=== PATIENT | male | born 1970 | race Caucasian/White ===

== ENCOUNTER 2021-08-01 09:18 | Outpatient (CLI) | payer OTHER, SELFPAY ==
[2021-08-01 13:44] LABS: Basophils Absolute Auto 0.1 K/mm3 (0.0-0.1); Basophils Percent Auto 0.6 % (0.2-1.2); Eosinophils Absolute Auto 0.1 K/mm3 (0-0.3); Eosinophils Percent Auto 1.6 % (0-4.4); Hemoglobin 15.7 g/dL (14.0-18.0); Immature Granulocyte Absolute 0.03 K/mm3 (0.00-0.031); Immature Granulocyte Percent A 0.3 % (0-0.5); Lymphocytes Absolute Auto 2.49 K/mm3 (0.9-3.2); Lymphocytes Percent Auto 28.8 % (18.3-44.2); Mean Corpuscular HGB Conc 33.4 g/dl (32-36); Mean Corpuscular Hemoglobin 29.3 pg (26-34); Mean Corpuscular Volume 87.7 fl (80-100); Mean Platelet Volume 11.4 fl (7.4-10.4); Monocytes Absolute Auto 0.6 K/mm3 (0.1-0.6); Monocytes Percent Auto 7.2 % (2.6-8.5); Neutrophils Absolute Auto 5.3 K/mm3 (1.3-6.7); Neutrophils Percent Auto 61.5 % (45.5-73.1); Platelet Count Result 203 k/mm3 (150-375); Red Blood Count 5.36 M/mm3 (4.6-6.20); Red Cell Distribution Width 13.1 % (11.5-14.5); White Blood Count 8.7 K/mm3 (4.5-10.0)
[2021-08-01 13:47] LABS: Add Urine Microscopic? YES; Appearance Urine Clear (Clear); Bilirubin Urine Negative (Negative); Blood Urine Negative (Negative); Color Urine Yellow (Yellow); Glucose Urine UA Negative (Negative); Ketones Urine Negative (Negative); Leukocyte Esterase Ur Negative LEU/UL (NEGATIVE); Mucus Urine Rare /lpf; Nitrate Urine Negative (Negative); Protein Urine 1+ mg/dL (Negative); RBC Urine 0-2 /hpf (0-2); Specific Grav Ur 1.025 (1.001-1.035); Squamous Epithelial Cell Urine Rare /hpf (Few); Urobilinogen Urine Negative mg/dL (<2.0); WBC Urine 0-3 /hpf (0-3)
[2021-08-01 17:04] LABS: Vitamin D 25 Hydroxy 13.1 ng/mL
[2021-08-01 21:41] LABS: Alanine Aminotransferase 38 U/L (4-50); Albumin Level 4.4 g/dL (3.5-5.1); Alkaline Phosphatase 88 U/L (38-126); Anion Gap 12 mmol/L (8-16); Aspartate Amino Transferase 33 U/L (17-59); Bilirubin,Total 0.5 mg/dL (0.2-1.3); Blood Urea Nitrogen 12 mg/dL (9-20); Calcium 9.3 mg/dL (8.4-10.2); Carbon Dioxide 20 mmol/L (22-30); Chloride 106 mmol/L (98-107); Cholesterol 197 mg/dL (0-200); Estimated Glomerular Filt Rate > 60; Glucose 100 mg/dL (65-110); HDL Direct 32 mg/dL; Potassium 3.9 mmol/L (3.4-5.0); Sodium 138 mmol/L (137-145); Triglycerides 130 mg/dL (<150)
[2021-08-01 21:51] LABS: LDL Cholesterol Direct 126 mg/dL
[2021-08-01 22:12] LABS: Prostate Specific Antigen 0.7 ng/mL (< OR = 4.0)
[2021-08-01 22:35] LABS: Uric Acid 8.2 mg/dL (3.5-8.5)
== END 2021-08-01 09:19 | disposition home or self-care (01) ==
LOC: ANHWCLAB 09:26
PROVIDERS: PCP Internal Medicine; Referring Provider Internal Medicine; Visit Provider Internal Medicine
DX: G62.9 Polyneuropathy, unspecified (principal); E79.0 Hyperuricemia without signs of inflammatory arthritis and tophaceous disease; E66.01 Morbid (severe) obesity due to excess calories; I10 Essential (primary) hypertension; F32.A Depression, unspecified; E55.9 Vitamin D deficiency, unspecified; Z12.5 Encounter for screening for malignant neoplasm of prostate
CPT/HCPCS: 36415; 80053; 80061; 81001; 82306; 84153; 84443; 84550; 85025; G0103

== ENCOUNTER 2021-10-23 12:02 | Outpatient (CLI) | payer OTHER, SELFPAY ==
[2021-10-23 12:45] LABS: Basophils Percent Auto 0.5 % (0.2-1.2); Eosinophils Absolute Auto 0.1 K/mm3 (0-0.3); Eosinophils Percent Auto 1.6 % (0-4.4); Hematocrit 47.9 % (42.0-52.0); Hemoglobin 16.1 g/dL (14.0-18.0); Immature Granulocyte Absolute 0.02 K/mm3 (0.00-0.031); Immature Granulocyte Percent A 0.2 % (0-0.5); Lymphocytes Absolute Auto 1.95 K/mm3 (0.9-3.2); Lymphocytes Percent Auto 24.2 % (18.3-44.2); Mean Corpuscular HGB Conc 33.6 g/dl (32-36); Mean Corpuscular Hemoglobin 29.7 pg (26-34); Mean Corpuscular Volume 88.2 fl (80-100); Mean Platelet Volume 10.3 fl (7.4-10.4); Monocytes Absolute Auto 0.5 K/mm3 (0.1-0.6); Monocytes Percent Auto 5.6 % (2.6-8.5); Neutrophils Absolute Auto 5.5 K/mm3 (1.3-6.7); Neutrophils Percent Auto 67.9 % (45.5-73.1); Platelet Count Result 194 k/mm3 (150-375); Red Blood Count 5.43 M/mm3 (4.6-6.20); Red Cell Distribution Width 12.9 % (11.5-14.5); White Blood Count 8.1 K/mm3 (4.5-10.0)
[2021-10-23 12:56] LABS: Alanine Aminotransferase 32 U/L (4-50); Albumin Level 4.3 g/dL (3.5-5.1); Alkaline Phosphatase 95 U/L (38-126); Anion Gap 6 mmol/L (8-16); Aspartate Amino Transferase 27 U/L (17-59); Bilirubin,Total 0.6 mg/dL (0.2-1.3); Blood Urea Nitrogen 10 mg/dL (9-20); Calcium 8.7 mg/dL (8.4-10.2); Carbon Dioxide 24 mmol/L (22-30); Chloride 110 mmol/L (98-107); Cholesterol 135 mg/dL (0-200); Estimated Glomerular Filt Rate > 60; Glucose 119 mg/dL (65-110); HDL Direct 35 mg/dL; Potassium 4.1 mmol/L (3.4-5.0); Sodium 140 mmol/L (137-145); Triglycerides 101 mg/dL (<150)
[2021-10-23 13:07] LABS: Hemoglobin A1C 5.6 % (<5.7); LDL Cholesterol Direct 75 mg/dL
[2021-10-23 13:57] LABS: Vitamin D 25 Hydroxy < 12.8 ng/mL
[2021-10-27 03:01] LABS: Insulin Level Total 19.7 uIU/mL (<=19.6)
== END 2021-10-23 12:03 | disposition home or self-care (01) ==
LOC: ANHLAB 12:06
PROVIDERS: PCP Internal Medicine
DX: F33.0 Major depressive disorder, recurrent, mild (principal)
CPT/HCPCS: 36415; 80053; 80061; 82306; 82607; 82746; 83036; 83525; 84443; 85025

== ENCOUNTER 2022-01-16 16:04 | Outpatient (CLI) | payer OTHER, SELFPAY ==
[2022-01-16 16:45] LABS: Alanine Aminotransferase 36 U/L (6-50); Albumin Level 4.4 g/dL (3.5-5.1); Alkaline Phosphatase 98 U/L (38-126); Anion Gap 7 mmol/L (8-16); Aspartate Amino Transferase 31 U/L (17-59); Bilirubin,Total 0.6 mg/dL (0.2-1.3); Blood Urea Nitrogen 11 mg/dL (9-20); Calcium 8.9 mg/dL (8.4-10.2); Carbon Dioxide 24 mmol/L (22-30); Chloride 108 mmol/L (98-107); Cholesterol 124 mg/dL (0-200); Estimated Glomerular Filt Rate > 60; Glucose 128 mg/dL (65-110); HDL Direct 37 mg/dL; Sodium 139 mmol/L (137-145); Triglycerides 106 mg/dL (<150); Uric Acid 5.9 mg/dL (3.5-8.5)
[2022-01-16 16:55] LABS: LDL Cholesterol Direct 56 mg/dL
== END 2022-01-16 16:05 | disposition home or self-care (01) ==
LOC: ANHLAB 16:07
PROVIDERS: PCP Internal Medicine; Visit Provider Internal Medicine
DX: E79.0 Hyperuricemia without signs of inflammatory arthritis and tophaceous disease (principal); I10 Essential (primary) hypertension
CPT/HCPCS: 36415; 80053; 80061; 84550

== ENCOUNTER 2022-04-23 10:20 | Emergency (ER) | payer OTHER, SELFPAY ==
[2022-04-23 10:28] VITALS: BP 158/98; PULSE 111; RESP 18; TEMP 36.8; O2SAT 97
--- NOTE | 2022-04-23 10:45 | ED.SKABFB ---
HPI - Skin/Abscess/Foreign Bdy General Chief complaint: Skin/Abscess/Foreign Body Stated complaint: Insect Bite on Left Hand Time Seen by Provider: 04/23/22 10:45 Source: patient and RN notes reviewed Mode of arrival: ambulatory Limitations: no limitations History of Present Illness HPI narrative: 51-year-old male presents to the [facility] with redness after being bit by a spider on Friday night or Friday morning. Redness to the dorsal aspect left hand between MCP, 4/5 Has full range of motion of all 5 fingers. Capillary refill under 2 seconds with sensation intact. Redness, minor swelling and increased warmth Related Data Home Medications Medication Instructions Recorded Confirmed latanoprost 0.005 % eye drops 1 drp ophthalmic (eye) DIRECTED 04/23/22 04/23/22 Allergies Allergy/AdvReac Type Severity Reaction Status Date / Time No Known Allergies Allergy Mild Verified 04/23/22 10:25 Review of Systems Review of Systems: All systems reviewed & are unremarkable except as noted in HPI and below Constitutional: Constitutional: Reports no additional constitutional complaints, Denies chills and Denies fever(s) Eyes: Eyes: Reports no additional eye complaints ENT: Reports system reviewed and no additional complaints, except as documented Cardiovascular: Cardiovascular: Reports no additional cardiovascular complaints Respiratory: Respiratory: Reports no additional respiratory complaints Gastrointestinal: Gastrointestinal: Reports no additional gastrointestinal complaints Musculoskeletal: Musculoskeletal: Reports no additional musculoskeletal complaints Integumentary/Breasts: Skin/Breast: Reports as per HPI Neurologic: Reports system reviewed and no additional complaints, except as documented Psychiatric: Psychiatric: Reports no additional psychiatric complaints Allergic/Immunologic: Allergic/Immunologic: Reports no additional allergic/immunologic complaints PMFSH Family History Family History Mother Hypertension Depression Grandparent Alcohol abuse Diabetes mellitus Hypertension Cerebrovascular accident Social History Social History Smoking status: Never smoker Drinks per week: 1 Alcohol use details: soically Substance use: never Comments At the time of my signature, I reviewed and agree with the nursing past medical, surgical, social, and family history. There is no relevant family history pertinent to the patient complaint. Exam Const: General: healthy appearing, no acute distress and alert Nutritional Appearance: well nourished Orientation/consciousness: patient oriented x3 Limitations: no limitations HENMT: Head: normal to inspection Ears: external ears normal General nose exam: Normal external nose present Eyes: General: appearance normal, both eyes and all related structures Pupils: Equal, round and reactive pupils present Neck: Neck: normal visual inspection, no lymphadenopathy and no meningeal signs Chest: Chest palpation & inspection: normal inspection of the chest Resp: Effort & Inspection: normal respiratory effort and no use of accessory muscles Auscultation: clear to auscultation bilaterally, no crackles, no rales, no rhonchi and no wheezes Cardio: Rate: regular rate Rhythm: regular rhythm Back/Spine/Pelvis: Cervical Spine: normal cervical lordosis Thoracic/Lumbar Spine: thoracic and lumbar spine normal to inspection Skin: General skin exam: normal color Rashes: no rashes Wounds: no wounds Other: Dorsal hand above metacarpals 4 and 5, red, swollen, hot to touch no fluctuance. Measuring 2 x 2 cm Neuro: General: patient oriented x3, moves all extremities, no meningeal signs and no focal motor deficits Cranial nerves: Yes Equal, round and reactive pupils present Speech: normal speech Gait exam (Neuro): Normal gait present Extrem: General: n
== END 2022-04-23 10:55 | disposition home or self-care (01) ==
PROVIDERS: Emergency Provider Nurse Practitioner; PCP Nurse Practitioner
DX: S60.562A Insect bite (nonvenomous) of left hand, initial encounter (principal); L03.114 Cellulitis of left upper limb; W57.XXXA Bitten or stung by nonvenomous insect and other nonvenomous arthropods, initial encounter; E78.00 Pure hypercholesterolemia, unspecified; I10 Essential (primary) hypertension; G47.30 Sleep apnea, unspecified; M10.9 Gout, unspecified; F32.A Depression, unspecified; G62.9 Polyneuropathy, unspecified
CPT/HCPCS: 99213; G0463

== ENCOUNTER 2022-05-20 13:59 | Outpatient (CLI) | payer OTHER, SELFPAY ==
[2022-05-20 14:38] LABS: Basophils Percent Auto 0.5 % (0.2-1.2); Eosinophils Absolute Auto 0.2 K/mm3 (0-0.3); Eosinophils Percent Auto 2.7 % (0-4.4); Hematocrit 47.1 % (42.0-52.0); Hemoglobin 15.1 g/dL (14.0-18.0); Immature Granulocyte Absolute 0.01 K/mm3 (0.00-0.031); Immature Granulocyte Percent A 0.2 % (0-0.5); Lymphocytes Absolute Auto 1.99 K/mm3 (0.9-3.2); Lymphocytes Percent Auto 31.5 % (18.3-44.2); Mean Corpuscular HGB Conc 32.1 g/dl (32-36); Mean Corpuscular Hemoglobin 28.2 pg (26-34); Monocytes Absolute Auto 0.4 K/mm3 (0.1-0.6); Monocytes Percent Auto 6.2 % (2.6-8.5); Neutrophils Absolute Auto 3.7 K/mm3 (1.3-6.7); Neutrophils Percent Auto 58.9 % (45.5-73.1); Platelet Count Result 198 k/mm3 (150-375); Red Blood Count 5.35 M/mm3 (4.6-6.20); Red Cell Distribution Width 13.1 % (11.5-14.5); White Blood Count 6.3 K/mm3 (4.5-10.0)
[2022-05-20 15:59] LABS: Alanine Aminotransferase 43 U/L (6-50); Albumin Level 4.2 g/dL (3.5-5.1); Alkaline Phosphatase 88 U/L (38-126); Anion Gap 8 mmol/L (8-16); Aspartate Amino Transferase 32 U/L (17-59); Bilirubin,Total 0.5 mg/dL (0.2-1.3); Blood Urea Nitrogen 15 mg/dL (9-20); Carbon Dioxide 24 mmol/L (22-30); Chloride 109 mmol/L (98-107); Estimated Glomerular Filt Rate > 60; Glucose 128 mg/dL (65-110); Potassium 4.1 mmol/L (3.4-5.0); Sodium 141 mmol/L (137-145)
[2022-05-20 17:09] LABS: Folic Acid 5.1 ng/mL (2.76->20)
[2022-05-22 12:47] LABS: Insulin Level Total 23.6 uIU/mL (<=19.6)
== END 2022-05-20 14:00 | disposition home or self-care (01) ==
LOC: ANHLAB 14:10
PROVIDERS: PCP Nurse Practitioner; Visit Provider Psychiatry & Neurology Psychiatry
DX: F33.0 Major depressive disorder, recurrent, mild (principal)
CPT/HCPCS: 36415; 80053; 82607; 82746; 83525; 84443; 85025

== ENCOUNTER 2022-08-01 13:18 | Outpatient (CLI) | payer OTHER, SELFPAY ==
[2022-08-01 13:47] LABS: Uric Acid 5.8 mg/dL (3.5-8.5)
[2022-08-01 15:18] LABS: Vitamin D 25 Hydroxy 36.5 ng/mL
== END 2022-08-01 13:19 | disposition home or self-care (01) ==
PROVIDERS: PCP Internal Medicine; Visit Provider Internal Medicine
DX: G62.9 Polyneuropathy, unspecified (principal); E55.9 Vitamin D deficiency, unspecified; M10.9 Gout, unspecified
CPT/HCPCS: 36415; 82306; 82607; 84550

== ENCOUNTER 2022-09-11 14:45 | Outpatient (CLI) | payer OTHER, SELFPAY ==
[2022-09-11 15:49] LABS: Alanine Aminotransferase 36 U/L (6-50); Albumin Level 4.4 g/dL (3.5-5.1); Alkaline Phosphatase 85 U/L (38-126); Anion Gap 7 mmol/L (8-16); Aspartate Amino Transferase 29 U/L (17-59); Bilirubin,Total 0.4 mg/dL (0.2-1.3); Blood Urea Nitrogen 12 mg/dL (9-20); Carbon Dioxide 25 mmol/L (22-30); Chloride 110 mmol/L (98-107); Estimated Glomerular Filt Rate > 60; Glucose 121 mg/dL (65-110); Sodium 142 mmol/L (137-145)
== END 2022-09-11 14:46 | disposition home or self-care (01) ==
PROVIDERS: PCP Nurse Practitioner; Visit Provider Psychiatry & Neurology Psychiatry
DX: R73.01 Impaired fasting glucose (principal)
CPT/HCPCS: 36415; 80053; 83036

== ENCOUNTER 2022-12-10 12:07 | Outpatient (CLI) | payer OTHER, SELFPAY ==
[2022-12-10 13:09] LABS: Alanine Aminotransferase 45 U/L (6-50); Albumin Level 4.6 g/dL (3.5-5.1); Alkaline Phosphatase 98 U/L (38-126); Anion Gap 8 mmol/L (8-16); Aspartate Amino Transferase 32 U/L (17-59); Bilirubin,Total 0.8 mg/dL (0.2-1.3); Blood Urea Nitrogen 14 mg/dL (9-20); Calcium 9.1 mg/dL (8.4-10.2); Carbon Dioxide 27 mmol/L (22-30); Chloride 106 mmol/L (98-107); Cholesterol 131 mg/dL (0-200); Estimated Glomerular Filt Rate > 60; Glucose 118 mg/dL (65-110); HDL Direct 35 mg/dL; Sodium 141 mmol/L (137-145); Triglycerides 174 mg/dL (<150)
[2022-12-10 13:15] LABS: Hemoglobin A1C 5.9 % (<5.7)
[2022-12-10 13:20] LABS: LDL Cholesterol Direct 66 mg/dL
[2022-12-10 13:41] LABS: Creatinine Urine 252.1 mg/dL
[2022-12-10 13:43] LABS: MALB Creatinine Ratio 3.1 mg/g (0-30); Microalbumin Urine Random 7.9 mg/L (0-16.7)
== END 2022-12-10 12:08 | disposition home or self-care (01) ==
LOC: ANHLAB 12:10
PROVIDERS: PCP Internal Medicine; Visit Provider Nurse Practitioner Family
DX: R73.01 Impaired fasting glucose (principal); R73.09 Other abnormal glucose; E78.5 Hyperlipidemia, unspecified; I10 Essential (primary) hypertension
CPT/HCPCS: 36415; 80053; 80061; 82043; 83036

== ENCOUNTER 2023-07-11 13:24 | Outpatient (CLI) | payer OTHER, SELFPAY ==
[2023-07-11 14:54] LABS: Basophils Absolute Auto 0.1 K/mm3 (0.0-0.1); Basophils Percent Auto 0.6 % (0.2-1.2); Eosinophils Absolute Auto 0.1 K/mm3 (0-0.3); Eosinophils Percent Auto 1.8 % (0-4.4); Hematocrit 46.8 % (42.0-52.0); Hemoglobin 15.4 g/dL (14.0-18.0); Immature Granulocyte Absolute 0.01 K/mm3 (0.00-0.031); Immature Granulocyte Percent A 0.1 % (0-0.5); Lymphocytes Absolute Auto 2.38 K/mm3 (0.9-3.2); Lymphocytes Percent Auto 30.2 % (18.3-44.2); Mean Corpuscular HGB Conc 32.9 g/dl (32-36); Mean Corpuscular Hemoglobin 28.8 pg (26-34); Mean Corpuscular Volume 87.6 fl (80-100); Mean Platelet Volume 10.9 fl (7.4-10.4); Monocytes Absolute Auto 0.7 K/mm3 (0.1-0.6); Monocytes Percent Auto 8.2 % (2.6-8.5); Neutrophils Absolute Auto 4.7 K/mm3 (1.3-6.7); Neutrophils Percent Auto 59.1 % (45.5-73.1); Platelet Count Result 209 k/mm3 (150-375); Red Blood Count 5.34 M/mm3 (4.6-6.20); Red Cell Distribution Width 13.2 % (11.5-14.5); White Blood Count 7.9 K/mm3 (4.5-10.0)
[2023-07-11 15:03] LABS: Alanine Aminotransferase 39 U/L (6-50); Albumin Level 4.5 g/dL (3.5-5.1); Alkaline Phosphatase 85 U/L (38-126); Anion Gap 13 mmol/L (8-16); Aspartate Amino Transferase 30 U/L (17-59); Bilirubin,Total 0.7 mg/dL (0.2-1.3); Blood Urea Nitrogen 14 mg/dL (9-20); Calcium 9.2 mg/dL (8.4-10.2); Carbon Dioxide 25 mmol/L (22-30); Chloride 106 mmol/L (98-107); Estimated Glomerular Filt Rate > 60; Glucose 88 mg/dL (65-110); Potassium 3.9 mmol/L (3.4-5.0); Sodium 144 mmol/L (137-145)
[2023-07-11 15:06] LABS: Hemoglobin A1C 5.8 % (<5.7)
[2023-07-11 15:34] LABS: Prostate Specific Antigen 0.7 ng/mL (< OR = 4.0)
== END 2023-07-11 13:25 | disposition home or self-care (01) ==
LOC: ANHLAB 13:25
PROVIDERS: PCP Family Medicine; Visit Provider Nurse Practitioner Family
DX: I10 Essential (primary) hypertension (principal); R73.01 Impaired fasting glucose; E66.01 Morbid (severe) obesity due to excess calories; G47.33 Obstructive sleep apnea (adult) (pediatric); Z12.5 Encounter for screening for malignant neoplasm of prostate; Z00.00 Encounter for general adult medical examination without abnormal findings
CPT/HCPCS: 36415; 80053; 83036; 84153; 85025; G0103

== ENCOUNTER 2024-01-23 11:01 | Outpatient (CLI) | payer OTHER, SELFPAY ==
[2024-01-23 13:03] LABS: Hemoglobin A1C 6.4 % (<5.7)
[2024-01-23 15:46] LABS: Alanine Aminotransferase 41 U/L (6-50); Albumin Level 4.3 g/dL (3.5-5.1); Alkaline Phosphatase 90 U/L (38-126); Anion Gap 6 mmol/L (4-12); Aspartate Amino Transferase 31 U/L (17-59); Bilirubin,Total 0.6 mg/dL (0.2-1.3); Blood Urea Nitrogen 14 mg/dL (9-20); Calcium 9.1 mg/dL (8.4-10.2); Carbon Dioxide 26 mmol/L (22-30); Chloride 108 mmol/L (98-107); Cholesterol 127 mg/dL (0-200); Estimated Glomerular Filt Rate > 60; Glucose 111 mg/dL (65-110); HDL Direct 31 mg/dL; Potassium 4.4 mmol/L (3.4-5.0); Sodium 140 mmol/L (137-145); Triglycerides 209 mg/dL (<150)
[2024-01-23 15:58] LABS: LDL Cholesterol Direct 70 mg/dL
== END 2024-01-23 11:02 | disposition home or self-care (01) ==
PROVIDERS: PCP Nurse Practitioner Family; Visit Provider Nurse Practitioner Family
DX: R73.09 Other abnormal glucose (principal); I10 Essential (primary) hypertension; R73.01 Impaired fasting glucose; G47.33 Obstructive sleep apnea (adult) (pediatric); E66.01 Morbid (severe) obesity due to excess calories
CPT/HCPCS: 36415; 80053; 80061; 83036

== ENCOUNTER 2024-01-30 14:47 | Outpatient (CLI) | payer OTHER, SELFPAY ==
[2024-01-30 15:14] LABS: Basophils Percent Auto 0.5 % (0.2-1.2); Eosinophils Absolute Auto 0.1 K/mm3 (0-0.3); Eosinophils Percent Auto 1.7 % (0-4.4); Hematocrit 46.1 % (42.0-52.0); Hemoglobin 14.9 g/dL (14.0-18.0); Immature Granulocyte Absolute 0.02 K/mm3 (0.00-0.031); Immature Granulocyte Percent A 0.3 % (0-0.5); Lymphocytes Absolute Auto 1.86 K/mm3 (0.9-3.2); Lymphocytes Percent Auto 29.1 % (18.3-44.2); Mean Corpuscular HGB Conc 32.3 g/dl (32-36); Mean Corpuscular Hemoglobin 28.8 pg (26-34); Mean Platelet Volume 10.5 fl (7.4-10.4); Monocytes Absolute Auto 0.4 K/mm3 (0.1-0.6); Monocytes Percent Auto 6.4 % (2.6-8.5); Platelet Count Result 188 k/mm3 (150-375); Red Blood Count 5.18 M/mm3 (4.6-6.20); White Blood Count 6.4 K/mm3 (4.5-10.0)
[2024-01-30 16:54] LABS: Prostate Specific Antigen 0.7 ng/mL (< OR = 4.0)
== END 2024-01-30 14:48 | disposition home or self-care (01) ==
LOC: ANHLAB 14:49
PROVIDERS: PCP Nurse Practitioner Family; Visit Provider Nurse Practitioner Family
DX: G47.33 Obstructive sleep apnea (adult) (pediatric) (principal); E66.01 Morbid (severe) obesity due to excess calories; E78.5 Hyperlipidemia, unspecified; F33.1 Major depressive disorder, recurrent, moderate; I10 Essential (primary) hypertension; R73.01 Impaired fasting glucose; Z12.5 Encounter for screening for malignant neoplasm of prostate
CPT/HCPCS: 36415; 84153; 85025; G0103

== ENCOUNTER 2024-08-28 08:31 | Outpatient (CLI) | payer OTHER, SELFPAY ==
[2024-08-28 09:07] LABS: Basophils Absolute Auto 0.1 K/mm3 (0.0-0.1); Basophils Percent Auto 0.7 % (0.2-1.2); Eosinophils Absolute Auto 0.1 K/mm3 (0-0.3); Eosinophils Percent Auto 1.7 % (0-4.4); Hematocrit 46.2 % (42.0-52.0); Immature Granulocyte Absolute 0.02 K/mm3 (0.00-0.031); Immature Granulocyte Percent A 0.2 % (0-0.5); Lymphocytes Absolute Auto 2.62 K/mm3 (0.9-3.2); Lymphocytes Percent Auto 32.1 % (18.3-44.2); Mean Corpuscular HGB Conc 32.5 g/dl (32-36); Mean Corpuscular Hemoglobin 28.2 pg (26-34); Mean Platelet Volume 10.4 fl (7.4-10.4); Monocytes Absolute Auto 0.5 K/mm3 (0.1-0.6); Monocytes Percent Auto 6.5 % (2.6-8.5); Neutrophils Absolute Auto 4.8 K/mm3 (1.3-6.7); Neutrophils Percent Auto 58.8 % (45.5-73.1); Platelet Count Result 208 k/mm3 (150-375); Red Blood Count 5.31 M/mm3 (4.6-6.20); Red Cell Distribution Width 12.7 % (11.5-14.5); White Blood Count 8.2 K/mm3 (4.5-10.0)
[2024-08-28 09:22] LABS: Alanine Aminotransferase 36 U/L (6-50); Albumin Level 4.4 g/dL (3.5-5.1); Alkaline Phosphatase 95 U/L (38-126); Anion Gap 2 mmol/L (4-12); Aspartate Amino Transferase 30 U/L (17-59); Blood Urea Nitrogen 11 mg/dL (9-20); Calcium 9.1 mg/dL (8.4-10.2); Carbon Dioxide 31 mmol/L (22-30); Chloride 107 mmol/L (98-107); Cholesterol 127 mg/dL (0-200); Estimated Glomerular Filt Rate > 60; Glucose 119 mg/dL (65-110); HDL Direct 36 mg/dL; Sodium 140 mmol/L (137-145); Triglycerides 148 mg/dL (<150)
[2024-08-28 09:33] LABS: LDL Cholesterol Direct 55 mg/dL
[2024-08-28 10:55] LABS: Hemoglobin A1C 6.8 % (<5.7)
== END 2024-08-28 08:32 | disposition home or self-care (01) ==
PROVIDERS: PCP Nurse Practitioner Family; Visit Provider Nurse Practitioner Family
DX: E78.5 Hyperlipidemia, unspecified (principal); R73.09 Other abnormal glucose; I10 Essential (primary) hypertension; R73.01 Impaired fasting glucose; E66.01 Morbid (severe) obesity due to excess calories; G47.33 Obstructive sleep apnea (adult) (pediatric)
CPT/HCPCS: 36415; 80053; 80061; 83036; 85025

== ENCOUNTER 2025-03-14 14:07 | Outpatient (CLI) | payer OTHER, SELFPAY ==
--- OUTSIDE RECORDS SUMMARY | 2025-03-14 14:10 | XMS_ITS | Patient Health Record ---
Author Organization [facility] As [employer] [facility] Address [facility] [facility] [address] [place] [address] Care Team Providers Care Wild Life Manager Name Role Phone WASHTA Dillon FLORESa Primary Care Provider Arie blankenship Atilio Martínez Unavailable [phone] Allergies No Known Allergies Results Component Value Reference Range Notes UDT Reviewed date:03/26/2024 02:16:47 PM Interpretation: Performing Lab: Notes/Report: THC neg 0 - 50 ng/ml Cocaine neg 0 - 300 ng/ml Amphetamine neg 0 - 1000 ng/ml Buprenorphine (BUP) neg 0 - 10 ng/ml Secobarbital (Bar) neg 0 - 300 ng/ml Oxazepam (BZO) neg 0 - 300 ng/ml 1-gkkgkiwfpc-3,7-lkighbgj-0, 3-diphe nylpyrrolidine (EDDP) neg 0 - 300 ng/ml Methamphetamine (MET) neg 0 - 1000 ng/ml Methylenedioxymethamphetamin e (MDMA) neg 0 - 500 ng/ml Morphine (MOP 300/[id number]) neg 0 - 300 ng/ml Methadone (MTD) neg 0 - 300 ng/ml Phencyclidine (PCP) neg 0 - 25 ng/ml Nortriptyline (TCA) neg 0 - 1000 ng/ml Oxycodone neg 0 - 300 ng/ml x neg 0 - 300 ng/ml DRUG MONITOR, BENZO, QN, URI NE ([id number]) Reviewed date:08/04/2024 05:15:53 PM Interpretation: Performing Lab:CB, [facility] [address], [place] Burton Carnes, Director - [id number] [facility] CenterPower.comAscension [facility] HospitalLouis[facility] Notes/Report: FASTING: NO Alphahydroxyalprazolam NEGATIVE <25 ng/mL Alphahydroxymidazolam NEGATIVE <50 ng/mL Alphahydroxytriazolam NEGATIVE <50 ng/mL Aminoclonazepam 719 <25 ng/mL Hydroxyethylflurazepam NEGATIVE <50 ng/mL Lorazepam NEGATIVE <50 ng/mL Nordiazepam NEGATIVE <50 ng/mL Oxazepam NEGATIVE <50 ng/mL Temazepam NEGATIVE <50 ng/mL Benzodiazepines Comments See Benzodiazepines Notes, LDT Notes Notes and Comments This drug testing is for medical treatment only. Analysis was performed as non-forensic testing and these results should be used only by healthcare providers to render diagnosis or treatment, or to monitor progress of medical conditions. Benzodiazepines Notes: Aminoclonazepam detected is consistent with the use of the drug Clonazepam. LDT Notes: Confirmation tests were developed and their analytical performance characteristics have been determined by [employer]. It has not been cleared or approved by the FDA. This assay has been validated pursuant to the CLIA regulations and is used for clinical purposes. Healthcare Providers needing Interpretation assistance, please contact us at [phone] ( ) M-F, 8am to 10pm EST UDT Reviewed date:07/26/2024 01:49:51 PM Interpretation: Performing Lab: Notes/Report: THC n 0 - 50 ng/ml Cocaine n 0 - 300 ng/ml Amphetamine n 0 - 1000 ng/ml Buprenorphine (BUP) n 0 - 10 ng/ml Secobarbital (Bar) n 0 - 300 ng/ml Oxazepam (BZO) n 0 - 300 ng/ml 7-nrxwbbrwer-0,5-jtjoygdp-1, 3-diphe nylpyrrolidine (EDDP) n 0 - 300 ng/ml Methamphetamine (MET) n 0 - 1000 ng/ml Methylenedioxymethamphetamin e (MDMA) n 0 - 500 ng/ml Morphine (MOP 300/FFB7145) n 0 - 300 ng/ml Methadone (MTD) n 0 - 300 ng/ml Phencyclidine (PCP) n 0 - 25 ng/ml Nortriptyline (TCA) n 0 - 1000 ng/ml Oxycodone n 0 - 300 ng/ml x n 0 - 300 ng/ml Seroquel Reviewed date:12/10/2024 05:14:21 PM Interpretation: Performing Lab: Notes/Report: Benzodiazepines Reviewed date:12/10/2024 05:14:21 PM Interpretation: Performing Lab:BLANE Maloney, [facility] ROSALBA CAMILO, Director - [id number] Notes/Report: An exception occurred while processing this report and so it has incomplete data. Please contact [employer] for assistance. Not Medicated Consistent Not Medicated Consistent Medicated Consistent Not Medicated Consistent Not Medicated Consistent Not Medicated Consistent Not Medicated Consistent Not Medicated Consistent Not Medicated Consistent Medicated Consistent 7-Aminoclonazepam 342.3 20.0 ng/mL Temazepam NEGATIVE 40.0 ng/mL Oxazepam NEGATIVE 40.0 ng/mL Midazolam NEGATIVE 40.0 ng/mL Lorazepam NEGATIVE 40.0 ng/mL Nordiazepam NEGATIVE 40.0 ng/mL Diazepam NEGATIVE 40.0 ng/mL Clonazepam NEGATIVE 20.0 ng/mL Hydroxyalprazolam NEGATIVE 20.0 ng/mL Alprazolam NEGATIVE 20.0 ng/mL PDF Report [email or web address] Reason For Referral No Information Medications Medication SIG (Take, Route, Frequency, Duration) Notes Start Date End Date Status metFORMIN HCl 500 MG Oral; Duration: 90 Days Active Gabapentin 100 MG Oral; Duration: 90 Days Active Allopurinol 100 MG Oral; Duration: 90 Days Active amLODIPine Besylate 5 MG Oral; Duration: 90 Days Active Rosuvastatin Calcium 5 MG Oral; Duration: 90 Days Active Lisinopril 40 MG Oral; Duration: 90 Days Active QUEtiapine Fumarate 25 MG 2 tablet every night Oral Once a day; Duration: 30 days Active clonazePAM 0.5 MG 1 tablet Oral three times a day; Duration: 30 days Active Immunizations Vaccine Route Administration Date Status Comme nts Influenza virus vaccine, quadrivalent (IIV4), split virus, 0.25 mL dosage Unknown 05/25/2020 Administered Novel [id number], preservative free Unknown 05/09/2020 Administered [employer] Covid-19 Vac cine 2nd dose Unknown 10/24/2020 Administered [employer] Covid-19 Vac cine 2nd dose Unknown 11/14/2020 Administered [employer] Covid-19 Vac cine 2nd dose Unknown 05/21/2021 Administered Social History Tobacco Use: Social History Observation Description Date Details (start date - stop date) Former Smoker NA - NA Sex Assigned At : Social History Observation Description Sex Assigned At Male Tobacco Control (Standard) Question Answer Notes Tobacco use: Former smoker How long has it been since you last smoked? Grea ter than 10 years Problems Problem Type SNOMED Code ICD Code Onset Dates Problem Status W/U Status Risk Notes Problem Mild recurrent major depression (67238155) Major depressive disorder, recurrent, mild (F33.0) 12/26/19 24 Active confirmed Problem Generalized anxiety disorder (68614026) Generalized anxiety disorder (F41.1) 12/26/19 24 Active confirmed Problem Cerebral palsy (398592432) Cerebral palsy, unspecified (G80.9) 12/26/19 24 Active confirmed Problem Hyperlipidemia (05283351) Hyperlipidemia (E78.5) 11/29/19 17 Active confirmed Problem Benign essential hypertension (7410615) Essential hypertension, benign (I10) 11/01/19 16 Active confirmed Problem Paresthesia (49457661) Paresthesia (R20.2) 11/01/19 16 Active confirmed Vital Signs Heart Rate 118 /min 12/13/2024 Height-cm 185.42 cm 12/13/2024 Blood pressure diastolic 88 mm Hg 12/13/2024 Weight-kg 136.17 kg 12/13/2024 Height 73.00 in 12/13/2024 Blood pressure systolic 145 mm Hg 12/13/2024 Weight 300.2 lbs 12/13/2024 BMI 39.6 kg/m2 12/13/2024 Encounters Encounter Location Date Provider Diagnosis [employer] [address] [facility] [address] [address] 03/26/2024 Atilio Martínez Cerebral palsy, unspecified G80.9 ; Major depressive disorder, recurrent, mild F33.0 ; Generalized anxiety disorder F41.1 and Prediabetes R73.03 [employer] [address] [facility] [address] [address] 07/26/2024 Atilio Martínez Major depressive disorder, recurrent, mild F33.0 ; Generalized anxiety disorder F41.1 ; Prediabetes R73.03 and Cerebral palsy, unspecified G80.9 [employer] [facility] [address] [place] [address] 12/02/2024 Atilio Mauricio Encounter for screen ing for depression Z13.31 ; Encounter for screening for cardiovascular disorders Z13.6 ; Dietary counseling and surveillance Z71.3 ; Major depressive disorder, recurrent, mild F33.0 ; Generalized anxiety disorder F41.1 ; Prediabetes R73.03 and Cerebral palsy, unspecified G80.9 [facility] [address] [place] [address] 12/13/2024 Atilio Mauricio Encounter for screen ing for depression Z13.31 ; Benign essential HTN I10 ; Major depressive disorder, recurrent, mild F33.0 ; Generalized anxiety disorder F41.1 ; Cerebral palsy, unspecified G80.9 ; Encounter for screening for cardiovascular disorders Z13.6 and Dietary counseling and surveillance Z71.3 Assessments Encounter Date Diagnosis (ICD Code) Assessment Notes Treatment Notes Treatment Clinical Notes Section Notes 03/26/2024 Cerebral palsy, unspecified (ICD-10 - G80.9) Depression - Assessment: Patient reports having down days lasting for a day or two but is overall managing well with support from friends, family, and their dog. No major anxiety reported. Patient mentions their dog helps encourage activities during down periods. - Plan: - Continue current treatment with Quetiapine 25 mg, two tablets at night. - No need to add an antidepressant at this time. Anxiety - Assessment: Patient experiences mild anxiety in certain situations but can differentiate between mild and severe anxiety. Patient describes recognizing the difference between being anxious and having bad anxiety. - Plan: - Continue current treatment with Clonazepam, three tablets as needed. Hypertension - Assessment: Patient's blood pressure was elevated during the visit, attributed to nervousness around doctors. Patient reports taking blood pressure medication and having normal readings with their primary care provider. Patient mentions needing to see their primary care provider (Radha) again soon. - Plan: - Encourage patient to continue monitoring blood pressure and follow up with primary care provider as needed. Follow-up - Assessment: Patient is doing well and has been stable on current treatment plan. - Plan: - Schedule a follow-up appointment in four months, as agreed upon by the patient. 07/26/2024 Major depressive disorder, recurrent, mild (ICD-10 - F33.0) Major Depressive Disorder - Assessment: The patient reports overall improvement in mood and no significant depressive symptoms at this time. - Plan: - Continue current medication regimen: Quetiapine 25 mg, 2 tablets at night. - Follow up in 4 months or sooner if any concerns arise. Anxiety - Assessment: The patient is experiencing some increased stress related to her parents' health issues but is managing it well. - Plan: - Continue current medication regimen: Clonazepam 0.5 mg three times a day. - Encourage the patient to utilize coping strategies and seek support as needed. - Follow up in 4 months or sooner if any concerns arise. Hypertension - Assessment: Blood pressure is stable at 124/82. - Plan: - Encourage the patient to continue monitoring blood pressure regularly and report any significant changes. Weight Management - Assessment: The patient acknowledges weight gain and the need to address it. Patient reports weight gain since the pandemic, after previously losing close to 100 pounds. - Plan: - Encourage the patient to engage in regular physical activity and adopt a healthy diet. - Consider referral to a slat grader or weight management program if needed. Coordination of Care - Plan: - Request that the patient's primary care physician share relevant medical information to ensure comprehensive care. - Send a summary of this visit to the patient's primary care physician. - Patient will remind primary care physician to send information at next visit. Medication Refills - Assessment: Patient mentions needing refills and will olive picker one refill on the way home. - Plan: - Refill Quetiapine and Clonazepam as needed. - Instruct the patient to contact the office if any issues arise with medication refills. Follow up in 4 months or sooner if any concerns arise. 07/26/2024 Generalized anxiety disorder (ICD-10 - F41.1) Major Depressive Disorder - Assessment: The patient reports overall improvement in mood and no significant depressive symptoms at this time. - Plan: - Continue current medication regimen: Quetiapine 25 mg, 2 tablets at night. - Follow up in 4 months or sooner if any concerns arise. Anxiety - Assessment: The patient is experiencing some increased stress related to her parents' health issues but is managing it well. - Plan: - Continue current medication regimen: Clonazepam 0.5 mg three times a day. - Encourage the patient to utilize coping strategies and seek support as needed. - Follow up in 4 months or sooner if any concerns arise. Hypertension - Assessment: Blood pressure is stable at 124/82. - Plan: - Encourage the patient to continue monitoring blood pressure regularly and report any significant changes. Weight Management - Assessment: The patient acknowledges weight gain and the need to address it. Patient reports weight gain since the pandemic, after previously losing close to 100 pounds. - Plan: - Encourage the patient to engage in regular physical activity and adopt a healthy diet. - Consider referral to a slat grader or weight management program if needed. Coordination of Care - Plan: - Request that the patient's primary care physician share relevant medical information to ensure comprehensive care. - Send a summary of this visit to the patient's primary care physician. - Patient will remind primary care physician to send information at next visit. Medication Refills - Assessment: Patient mentions needing refills and will olive picker one refill on the way home. - Plan: - Refill Quetiapine and Clonazepam as needed. - Instruct the patient to contact the office if any issues arise with medication refills. Follow up in 4 months or sooner if any concerns arise. 12/02/2024 Encounter for screening for depression (ICD-10 - Z13.31) 12/13/2024 Encounter for screening for depression (ICD-10 - Z13.31) 12/13/2024 Benign essential HTN (ICD-10 - I10) 12/02/2024 Encounter for screening for cardiovascular disorders (ICD-10 - Z13.6) 07/26/2024 Prediabetes (ICD-10 - R73.03) Major Depressive Disorder - Assessment: The patient reports overall improvement in mood and no significant depressive symptoms at this time. - Plan: - Continue current medication regimen: Quetiapine 25 mg, 2 tablets at night. - Follow up in 4 months or sooner if any concerns arise. Anxiety - Assessment: The patient is experiencing some increased stress related to her parents' health issues but is managing it well. - Plan: - Continue current medication regimen: Clonazepam 0.5 mg three times a day. - Encourage the patient to utilize coping strategies and seek support as needed. - Follow up in 4 months or sooner if any concerns arise. Hypertension - Assessment: Blood pressure is stable at 124/82. - Plan: - Encourage the patient to continue monitoring blood pressure regularly and report any significant changes. Weight Management - Assessment: The patient acknowledges weight gain and the need to address it. Patient reports weight gain since the pandemic, after previously losing close to 100 pounds. - Plan: - Encourage the patient to engage in regular physical activity and adopt a healthy diet. - Consider referral to a slat grader or weight management program if needed. Coordination of Care - Plan: - Request that the patient's primary care physician share relevant medical information to ensure comprehensive care. - Send a summary of this visit to the patient's primary care physician. - Patient will remind primary care physician to send information at next visit. Medication Refills - Assessment: Patient mentions needing refills and will olive picker one refill on the way home. - Plan: - Refill Quetiapine and Clonazepam as needed. - Instruct the patient to contact the office if any issues arise with medication refills. Follow up in 4 months or sooner if any concerns arise. 03/26/2024 Major depressive disorder, recurrent, mild (ICD-10 - F33.0) Depression - Assessment: Patient reports having down days lasting for a day or two but is overall managing well with support from friends, family, and their dog. No major anxiety reported. Patient mentions their dog helps encourage activities during down periods. - Plan: - Continue current treatment with Quetiapine 25 mg, two tablets at night. - No need to add an antidepressant at this time. Anxiety - Assessment: Patient experiences mild anxiety in certain situations but can differentiate between mild and severe anxiety. Patient describes recognizing the difference between being anxious and having bad anxiety. - Plan: - Continue current treatment with Clonazepam, three tablets as needed. Hypertension - Assessment: Patient's blood pressure was elevated during the visit, attributed to nervousness around doctors. Patient reports taking blood pressure medication and having normal readings with their primary care provider. Patient mentions needing to see their primary care provider (Radha) again soon. - Plan: - Encourage patient to continue monitoring blood pressure and follow up with primary care provider as needed. Follow-up - Assessment: Patient is doing well and has been stable on current treatment plan. - Plan: - Schedule a follow-up appointment in four months, as agreed upon by the patient. 03/26/2024 Generalized anxiety disorder (ICD-10 - F41.1) Depression - Assessment: Patient reports having down days lasting for a day or two but is overall managing well with support from friends, family, and their dog. No major anxiety reported. Patient mentions their dog helps encourage activities during down periods. - Plan: - Continue current treatment with Quetiapine 25 mg, two tablets at night. - No need to add an antidepressant at this time. Anxiety - Assessment: Patient experiences mild anxiety in certain situations but can differentiate between mild and severe anxiety. Patient describes recognizing the difference between being anxious and having bad anxiety. - Plan: - Continue current treatment with Clonazepam, three tablets as needed. Hypertension - Assessment: Patient's blood pressure was elevated during the visit, attributed to nervousness around doctors. Patient reports taking blood pressure medication and having normal readings with their primary care provider. Patient mentions needing to see their primary care provider (Radha) again soon. - Plan: - Encourage patient to continue monitoring blood pressure and follow up with primary care provider as needed. Follow-up - Assessment: Patient is doing well and has been stable on current treatment plan. - Plan: - Schedule a follow-up appointment in four months, as agreed upon by the patient. 07/26/2024 Cerebral palsy, unspecified (ICD-10 - G80.9) Major Depressive Disorder - Assessment: The patient reports overall improvement in mood and no significant depressive symptoms at this time. - Plan: - Continue current medication regimen: Quetiapine 25 mg, 2 tablets at night. - Follow up in 4 months or sooner if any concerns arise. Anxiety - Assessment: The patient is experiencing some increased stress related to her parents' health issues but is managing it well. - Plan: - Continue current medication regimen: Clonazepam 0.5 mg three times a day. - Encourage the patient to utilize coping strategies and seek support as needed. - Follow up in 4 months or sooner if any concerns arise. Hypertension - Assessment: Blood pressure is stable at 124/82. - Plan: - Encourage the patient to continue monitoring blood pressure regularly and report any significant changes. Weight Management - Assessment: The patient acknowledges weight gain and the need to address it. Patient reports weight gain since the pandemic, after previously losing close to 100 pounds. - Plan: - Encourage the patient to engage in regular physical activity and adopt a healthy diet. - Consider referral to a slat grader or weight management program if needed. Coordination of Care - Plan: - Request that the patient's primary care physician share relevant medical information to ensure comprehensive care. - Send a summary of this visit to the patient's primary care physician. - Patient will remind primary care physician to send information at next visit. Medication Refills - Assessment: Patient mentions needing refills and will olive picker one refill on the way home. - Plan: - Refill Quetiapine and Clonazepam as needed. - Instruct the patient to contact the office if any issues arise with medication refills. Follow up in 4 months or sooner if any concerns arise. 12/02/2024 Dietary counseling and surveillance (ICD-10 - Z71.3) 12/13/2024 Major depressive disorder, recurrent, mild (ICD-10 - F33.0) 12/13/2024 Generalized anxiety disorder (ICD-10 - F41.1) 03/26/2024 Prediabetes (ICD-10 - R73.03) Depression - Assessment: Patient reports having down days lasting for a day or two but is overall managing well with support from friends, family, and their dog. No major anxiety reported. Patient mentions their dog helps encourage activities during down periods. - Plan: - Continue current treatment with Quetiapine 25 mg, two tablets at night. - No need to add an antidepressant at this time. Anxiety - Assessment: Patient experiences mild anxiety in certain situations but can differentiate between mild and severe anxiety. Patient describes recognizing the difference between being anxious and having bad anxiety. - Plan: - Continue current treatment with Clonazepam, three tablets as needed. Hypertension - Assessment: Patient's blood pressure was elevated during the visit, attributed to nervousness around doctors. Patient reports taking blood pressure medication and having normal readings with their primary care provider. Patient mentions needing to see their primary care provider (Radha) again soon. - Plan: - Encourage patient to continue monitoring blood pressure and follow up with primary care provider as needed. Follow-up - Assessment: Patient is doing well and has been stable on current treatment plan. - Plan: - Schedule a follow-up appointment in four months, as agreed upon by the patient. 12/02/2024 Major depressive disorder, recurrent, mild (ICD-10 - F33.0) 12/02/2024 Generalized anxiety disorder (ICD-10 - F41.1) 12/13/2024 Cerebral palsy, unspecified (ICD-10 - G80.9) 12/13/2024 Encounter for screening for cardiovascular disorders (ICD-10 - Z13.6) 12/02/2024 Prediabetes (ICD-10 - R73.03) 12/13/2024 Dietary counseling and surveillance (ICD-10 - Z71.3) 12/02/2024 Cerebral palsy, unspecified (ICD-10 - G80.9) 12/02/2024 Sung Branch, an adult patient with a history of depression and anxiety, presents for follow-up with concerns about their elderly father's recent falls and newly diagnosed diabetes. Depression and Anxiety Assessment: Patient reports ongoing depression and anxiety that are always there, but it's controllable, and it hasn't gotten worse. They note increased depressive symptoms when thinking about their father's current health situation. The patient's mood appears to be stable on current medication regimen. Plan: - Continue ketamine 50 mg (dose, frequency, and route not specified) - Continue clonazepam 0.5 mg, 1 tablet, PO TID - Follow up in 4 months Diabetes Mellitus, Type 2 Assessment: Patient reports recent initiation of oral diabetes medication in August. They are currently taking metformin 500 mg tablets, though the frequency was not specified. Plan: - Continue metformin 500 mg tablets (frequency not specified) Caregiver Stress Assessment: Patient expresses concern about their elderly father (aged 83 or 83) who has fallen twice in the past week and a half. The patient assisted in helping their father up after both falls. They report increased depressive symptoms when thinking about their father's situation, indicating potential caregiver stress. Plan: - [facility] for further evaluation Disclaimer: This note has been transcribed using speech recognition software and serves as a reflection of the patient's visit. While efforts have been made to ensure accuracy, there may be errors, including fixed wing aircraft flight engineer inaccuracies and misspellings of medication names. This document should not be considered a verbatim record, and any discrepancies should be verified with the provider. 12/13/2024 Sung Branch, an adult patient with a history of hypertension and prediabetes, presents for follow-up regarding recent lab results and reports feeling pretty good but tired due to anxiety about the lab results. Hypertension Assessment: Patient reports taking amlodipine for hypertension. Blood pressure measured during the visit was elevated at 145/88 mmHg. Patient attributes the elevation to potential white coat hypertension, stating, I think sometimes when I know I have a doctor's appointment, it's always a little high, maybe due to nerves. Patient reports having a blood pressure machine at home for monitoring. Plan: - Continue current antihypertensive medication (amlodipine, dose not specified) - Recommend home blood pressure monitoring - Follow up at next scheduled appointment in March Prediabetes Assessment: Patient reports being recently started on metformin by another provider (Radha) due to elevated A1c. Exact A1c value not provided in the transcript, but it was described as a little high. Plan: - Continue metformin (dose not specified) - Follow up at next scheduled appointment in March Medication Adherence Assessment: Recent urine drug screen confirms patient is taking prescribed medication as directed. Patient reports, I take it every night. Plan: - Continue current medication regimen - Reinforce importance of medication adherence Major depressive disorder, recurrent, mild - F33.0 (Primary) Stable, no change Continue QUEtiapine Fumarate Tablet, 25 MG, 2 tablet every night, Oral, Once a day, 30 days, 60 Tablet, Refills 3 Continue clonazePAM Tablet, 0.5 MG, 1 tablet, Oral, three times a day, 30 days, 90 Tablet, Refills 3 Caregiver Stress Assessment: Patient expresses ongoing concern about their 80-year-old father who has recently fallen again. Father is described as hard-headed and resistant to accepting help. Patient has enlisted support from a cousin to help monitor the father's condition. Father is diabetic and walks his dog 2-3 times daily, which the patient views as a positive sign of his health. Plan: - Encourage continued family support and monitoring of father's condition - Validate patient's concerns and coping strategies Disclaimer: This note has been transcribed using speech recognition software and serves as a reflection of the patient's visit. While efforts have been made to ensure accuracy, there may be errors, including fixed wing aircraft flight engineer inaccuracies and misspellings of medication names. This document should not be considered a verbatim record, and any discrepancies should be verified with the provider. Plan Of Treatment Next Appt Details Provider Name:Atilio Martínez , 04/04/2025 02:30:00 PM, [address] [facility] [address], [facility] [address], [place], [address], Insurance Providers Payer Name Payer Address Payer Phone Subscriber Number Group Number Insured Name Patient Relationship to Insured Coverage Start Date Coverage End Date [facility] - Dual Eligible [address] [place] [phone] [id number] MARINO Conner FUENTES Self - patient is the insured Medical (General) History Medical History History ICD Code Problems: Cerebral palsy Generalized anxiety disorder Long-term drug therapy Mild recurrent major depression Morbid obesity Prediabetes , Surgical History Surgery Date(Month/Year) Other Retinaculotomy (72785214) Unlisted px femur/knee (19479) Cardiac pacemaker procedure ([id number]) Removal of mole of skin by excision ([id number])
--- OUTSIDE RECORDS SUMMARY | 2025-03-14 14:10 | XMS_ITS | Encounter Summary ---
Author Organization [facility] Address 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
--- OUTSIDE RECORDS SUMMARY | 2025-03-14 14:10 | XMS_ITS | Encounter Summary ---
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
--- OUTSIDE RECORDS SUMMARY | 2025-03-14 14:10 | XMS_ITS | Encounter Summary ---
Author Organization [facility] Address 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
--- OUTSIDE RECORDS SUMMARY | 2025-03-14 14:10 | XMS_ITS | Data Portability ---
Author Organization [place] [facility], Main Office Address [address] [place] [address] Care Team Providers Care Manufacturers Service Representative Name Role Phone ALANIS MARIE Primary Care Provider Assessment Encounter Date Assessment Date Assessment LastModified by Organization Details LastModified Time 07/21/2023 07/21/2023 This note is dictated and transcribed by [employer]. Manager Dish variances may occur. Despite proofreading, typographical errors may occur. Occasional wrong-word or 'dwgss-j-ssan' substitutions may have occurred due to the inherent limitations of voice recording. Read the chart carefully and recognize, using context, where substitutions have occurred. Not available 07/21/2023 16:33:40 11/20/2023 11/20/2023 This note is dictated and transcribed by [employer]. Manager Dish variances may occur. Despite proofreading, typographical errors may occur. Occasional wrong-word or 'tavfy-y-sgjl' substitutions may have occurred due to the inherent limitations of voice recording. Read the chart carefully and recognize, using context, where substitutions have occurred. Not available 11/24/2023 09:07:24 2024 2024 This note is dictated and transcribed by [employer]. Manager Dish variances may occur. Despite proofreading, typographical errors may occur. Occasional wrong-word or 'whjvq-k-ytnq' substitutions may have occurred due to the inherent limitations of voice recording. Read the chart carefully and recognize, using context, where substitutions have occurred. Not available 05/25/2024 13:54:04 09/16/2024 09/16/2024 This note is dictated and transcribed by [employer]. Manager Dish variances may occur. Despite proofreading, typographical errors may occur. Occasional wrong-word or 'ekash-q-soud' substitutions may have occurred due to the inherent limitations of voice recording. Read the chart carefully and recognize, using context, where substitutions have occurred. Not available 10/21/2024 09:07:13 12/16/2024 12/16/2024 This note is dictated and transcribed by [employer]. Manager Dish variances may occur. Despite proofreading, typographical errors may occur. Occasional wrong-word or 'azzgv-v-rfzl' substitutions may have occurred due to the inherent limitations of voice recording. Read the chart carefully and recognize, using context, where substitutions have occurred. Not available 12/16/2024 15:59:54 Plan of Treatment Reminders Order Date Submit Date Provider Last Modified By Organization Details Last Modified Time Details Appointments Establish ed Patient 15 2024 03:00P Wai Gilman DPM Not available Not available Not available Lab None recorded. Referral None recorded. Procedures None recorded. Surgeries None recorded. Imaging None recorded. Medication Orders ketoconaz ole 2 % topical cream 2023 024 [facility], [address] [place] [address], [id number], 05/25/2024 13:54:51 ketoconaz ole 2 % topical cream 2023 024 [facility], [address] [place] [address], [id number], 11/24/2023 09:08:29 ketoconaz ole 2 % topical cream 2022 023 [facility], [address] [place] [address], [id number], 07/21/2023 16:33:42 Patient TargetsNo targets recorded. Patient InstructionsNo instructions recorded. Reason for Referral None Reported. Problems Name Problem SNOMED Code Status Onset Date Resolution Date Notes Provider Name and Address Organization Details Recorded Time Heartburn 19798067 Active 2020 Not Available [facility] 3 23:59:42 Morbid obesity 402249479 Active 2020 Not Available [facility] 3 23:59:42 Unable to cut own toenails 779619845 Active 2020 Not Available [facility] 3 23:59:43 Depressive disorder 83481884 Active 2020 Not Available [facility] 3 23:59:43 Disorder of eye 223502276 Active 2020 Not Available [facility] 3 23:59:43 Onychomycosis of toenails 577314639 Active 2020 Not Available [facility] 3 23:59:43 Anxiety 00641414 Active 2020 Not Available [facility] 3 23:59:43 Gout 10207397 Active 2020 Not Available [facility] 3 23:59:43 Diabetic on oral treatment 142382920 Active 2024 Patricio Gilman DPM [address], [place], [address] , [facility] 5 16:00:00 Diabetes mellitus 14052398 Active 2024 Patricio Gilman DPM [address], [place], [address] , [facility] 5 16:00:10 Notes:ALLERGIES Problem Notes None recorded. Procedures Surgical History Date Name Laterality Status Provider Name and Address Organization Details Recorded Time 5 Nail Debridement completed Patricio Gilman DPM [address], [place], [address], [employer] 12/16/2024 16:01:24 5 Nail Debridement completed Patricio Gilman DPM [address], [place], [address], [facility] 10/21/2024 09:06:41 4 Nail Debridement completed Patricio Gilman DPM [address], [place], [address], [employer] 05/25/2024 13:53:50 4 Nail Debridement completed Patricio Gilman DPM [address], [place], [address], [facility] [employer] 11/24/2023 09:08:21 3 Nail Debridement completed Patricio Gilman DPM [address], [place], [address], [facility] [employer] [facility] 07/21/2023 16:28:19 3 Nail Debridement completed Patricio Gilman DPM [address], [place], [address], [facility] [employer] [facility] 04/17/2023 15:37:27 3 Nail Debridement completed Patricio Gilman DPM [address], [place], [address], [facility] [employer] [facility] 01/16/2023 14:20:47 Imaging Results None recorded. Procedure Notes None recorded. Medical Equipment None Reported. Medications Name Sig Start Date Stop Date Status Note LastModified by Organization Details LastModified Time quetiapine 25 mg tablet active Not Available Not Available Not Available latanoprost 0.005 % eye drops active Not Available Not Available Not Available metformin 500 mg tablet active Not Available Not Available Not Available clonazepam 0.5 mg tablet active Not Available Not Available Not Available travoprost 0.004 % eye drops active Not Available Not Available Not Available amlodipine 2.5 mg tablet active Not Available Not Available Not Available amlodipine 5 mg tablet active Not Available Not Available Not Available allopurinol 100 mg tablet active Not Available Not Available Not Available cephalexin 500 mg capsule 07/21 completed Not Available Not Available Not Available gabapentin 100 mg capsule active Not Available Not Available Not Available Vitamin D2 1,250 mcg (50,000 unit) capsule active Not Available Not Available Not Available ketoconazol e 2 % topical cream APPLY TO THE AFFECTED AREA(S) toenails BY TOPICAL ROUTE ONCE DAILY 2023 active Not Available Not Available Not Avai lable lisinopril 40 mg tablet active Not Available Not Available Not Available fluticasone propionate 50 mcg/actuati on nasal spray,suspe nsion active Not Available Not Available Not Available rosuvastati n 5 mg tablet active Not Available Not Available Not Available lisinopril 2020 active Not Available Not Available Not Avai lable Vitals Date Recorded Body height Heart rate Respiratory rate Oxygen saturation Oxygen saturation in Arterial blood by Pulse oximetry Systolic And Diastolic Provider Name and Address Organization Details Last Updated DateTime 5 182.88 cm 106 /min 14 /min 98 % 98 % 136/77 mm[Hg] Elise [facility] [employer] [facility] 5 16:04:46 Date Recorded Body height Provider Name an d Address Organization Details Last Updated DateTime 11/20/2023 182.88 cm Elise [facility] [employer] [facility] 11/24/2023 08:55:59 Date Recorded Body height Heart rate Respiratory rate Oxygen saturation Oxygen saturation in Arterial blood by Pulse oximetry Systolic And Diastolic Provider Name and Address Organization Details Last Updated DateTime 5 182.88 cm 104 /min 14 /min 98 % 98 % 126/70 mm[Hg] Elise [facility] [employer] [facility] 5 15:44:44 Date Recorded Body height Heart rate Respiratory rate Oxygen saturation Oxygen saturation in Arterial blood by Pulse oximetry Systolic And Diastolic Provider Name and Address Organization Details Last Updated DateTime 4 182.88 cm 121 /min 14 /min 98 % 98 % 122/67 mm[Hg] Elise [facility] [employer] [facility] 4 15:57:48 Date Recorded Body height Heart rate Respiratory rate Oxygen saturation Oxygen saturation in Arterial blood by Pulse oximetry Systolic And Diastolic Provider Name and Address Organization Details Last Updated DateTime 3 182.88 cm 100 /min 114 /min 98 % 98 % 124/70 mm[Hg] Elise [facility] [employer] [facility] 3 15:50:03 Social History None recorded. Functional Status Question Answer Note LastModified by Organizat ion Details LastModified Time What is your level of alcohol consumption? Occasional [id number] Information not available 10/23/2022 Mental Status None recorded. Family History Relationship Description Onset Age of this Age Resolved Age Notes LastModified by Organization Details LastModified Time Unspecified Relation Diabetes mellitus GRANDP ARENT [id number] Not available 10/23/2022 23:57:46 Father Hypertensive disorder [id number] Not available 10/23/2022 23:57:46 Father Family history of malignant neoplasm [id number] Not available 10/23/2022 23:57:47 Mother Hypertensive disorder [id number] Not available 10/23/2022 23:57:47 Notes:STROKE-GRANDMOTHER Medical History Condition Response OBESITY Y GOUT Y DEPRESSION (INCLUDING POST ) Y Past Encounters Encounter ID Performer Location Encounter Start Date Encounter Closed Date Diagnosis/Indication Diagnosis SNOMED-CT Code Diagnosis ICD10 Code Diagnosis Note [id number] DUSTIN Jameson IGRATION_ DEFAULT_1 _1 , 07/16/2021 00:00:00 07/16/2021 15:11:18 [id number] DUSTIN Jameson IGRATION_ DEFAULT_1 _1 , 2022 00:00:00 05/22/2022 09:37:36 [id number] Patricio Gilman DPM [facility] [place] [address] [facility] [address] [place] [address] 01/16/2023 13:58:18 01/16/2023 14:37:45 Onychomycosis of toenails 725542376 B35.1 Nails 1 through 10 were debrided with sharp mechanical debridemen t without incident. Nails were debrided and greater than 50% length and thickness where needed.Rx ketoconazo lefollow-u p 3 months Unable to cut own toenails 583607526 Z74.1 [id number] Patricio Gilman DPM [facility] [place] [address] [place] [address] 04/17/2023 14:14:05 04/17/2023 15:43:03 Onychomycosis of toenails 969413054 B35.1 Nails 1 through 10 were debrided with sharp mechanical debridemen t without incident. Nails were debrided and greater than 50% length and thickness where needed.Rx ketoconazo lefollow-u p 3 months Unable to cut own toenails 643177550 Z74.1 [id number] Patricio Gilman DPM [facility] [place] [address] [place] [address] 07/21/2023 15:45:18 07/22/2023 12:05:52 Onychomycosis of toenails 278017960 B35.1 Nails 1 through 10 were debrided with sharp mechanical debridemen t without incident. Nails were debrided and greater than 50% length and thickness where needed.Rx ketoconazo lefollow-u p 3 months Unable to cut own toenails 432184946 Z74.1 [id number] Patricio Gilman DPM [facility] Pod[facility] [place] [address] [facility] [address] [place] [address] 11/21/2023 16:54:05 11/24/2023 15:33:33 Onychomycosis of toenails 423757638 B35.1 Nails 1 through 10 were debrided with sharp mechanical debridemen t without incident. Nails were debrided and greater than 50% length and thickness where needed.Rx ketoconazo lefollow-u p 3 months Unable to cut own toenails 314924239 Z74.1 [id number] Patricio Gilman DPM [facility] Pod[facility] [place] [address] [facility] [address] [place] [address] 2024 15:50:22 05/25/2024 16:57:04 Onychomycosis of toenails 171335203 B35.1 Nails 1 through 10 were debrided with sharp mechanical debridemen t without incident. Nails were debrided and greater than 50% length and thickness where needed.Rx ketoconazo le, continue to toenailsfo llow-up 3 months Morbid obesity 509597840 E66.01 Unable to cut own toenails 122493654 Z74.1 [id number] Patricio Gilman DPM [facility] [place] [address] [facility] [address] [place] [address] 09/16/2024 15:57:36 10/22/2024 13:07:25 Onychomycosis of toenails 418676265 B35.1 Nails 1 through 10 were debrided with sharp mechanical debridemen t without incident. Nails were debrided and greater than 50% length and thickness where needed.Rx ketoconazo le, continue to toenailsfo llow-up 3 months Unable to cut own toenails 141786877 Z74.1 Morbid obesity 814227272 E66.01 Recommend weight loss [id number] Patricio Gilman DPM [facility] Podiatry [place] [address] [place] [address] 12/16/2024 15:36:20 12/21/2024 12:22:59 Onychomycosis of toenails 920274696 B35.1 Nails 1 through 10 were debrided with sharp mechanical debridemen t without incident. Nails were debrided and greater than 50% length and thickness where needed.Rx ketoconazo le, continue to toenailsfo llow-up 3 months Unable to cut own toenails 576768645 Z74.1 Diabetes mellitus 265441 09 E11.9 Patient educated on neuropathy , diabetes, diabetic diet, and daily foot exams. Patient is to check feet daily for new wounds, blisters, redness to prevent infection and ulceration s to the feet. Patient will return to clinic in 3 months for diabetic foot workup. Diabetic o n oral treatment 766988473 Z79.84 continue diabetic control per PCP recommenda tions, on metformin Health Concerns Section Related Observation LastModified by Organization Detai ls LastModified Time None Recorded Concern Status LastModified by Organization Details LastModified Time None Recorded Advance Directives Directive None Recorded Payers Insurance Date Sequence Insurance Name Policy Number Policy Perez Covered Member ID Perez Member ID Guarantor Name 12/21/2024 1 [facility] (MEDICARE - MEDICAID REPLACEMENT HMO) [id number] Sol Branch [id number] Sol Branch Notes Date Note Type Note Provider Name and Address Organization Details Recorded Time 07/21/2023 text/html . Patient is a 53-year-old male who returns to the office for complaints of painful toenails due to onychomycosis. Patient has been applying ketoconazole to the area but states it has not completely eradicating the issue. Patient states the nails are softer. Patient denies any other complaints. Patricio Gilman DPM [address] [facility] [address], [place], [address], [facility] 07/21/2023 16:39:00 11/20/2023 text/html . Patient is a 53-year-old male who returns the office for follow-up on onychomycosis of the toenails. Patient states overall he is doing well. Patient continues have onychomycosis of the toenails he has been applying topical ketoconazole to the toenails with some improvement. Patient denies any other complaints. Patricio Gilman DPM [address], [place], [address], [facility] 11/24/2023 09:08:36 2024 text/html . Patient is a 54-year-old male who returns to the office for routine foot care. Patient is unable to cut his toenails states they are very long. Patient was last seen in October. Patient denies any other complaints. Patricio Gilman DPM [address], [place], [address], [facility] 05/25/2024 13:54:54 09/16/2024 text/html . Patient is a 54-year-old male diabetic who presents to the office for routine diabetic foot care. Patient is recently diagnosed diabetic he has elongated thickened toenails which he is unable cut secondary to obesity. Patient has dry skin but denies any open wounds or infection he denies any cramping or foot pain. Patricio Gilman DPM [address], [place], [address], [facility] 10/21/2024 09:07:35 12/16/2024 text/html . Patient is a 54-year-old male diabetic he recently has been added on metformin due to increased blood sugars. Patient denies any open wounds or foot injury. Patient states his toenails are thickened and elongated and unable to cut them. Patient denies any other complaints. Patricio Gilman DPM [address], [place], [address], [employer] [facility] 12/16/2024 16:01:41
--- OUTSIDE RECORDS SUMMARY | 2025-03-14 14:10 | XMS_ITS | Continuity of Care Document ---
Author Organization [facility] Address [address] [place] [address] [address] [place] [address] Phone Care Team Providers Care Application Design Engineer Name Role Phone Lora Vera Unavailable Unavailable Procedures Procedure Date Office/outpatient Visit, Est Optic Nerve Head Eval IOP Red Less Than 15% W Plan Of Care Jun Office/outpatient Visit, Est Optic Nerve Head Eval IOP Red Less Than 15% W Plan Of Care Feb Fundus Photography W/ Report Office/outpatient Visit, Est Optic Nerve Head Eval IPO Reduced 15% Corneal Pachymetry No Charge Glasses Check Visual Field Examination-Professional Fe Visual Field Examination-Technical Sep- Eye Exam Established Pt No Charge Contact Lens Check CL Replacement - Vistakon Disp W/BW Soft Tax - Medical Eye Exam & Treatment Refraction Advance Directives Directive Yes / No Effective Date File Name No Information Encounters Encounter Description Practice Location Reason(s) For Visit Diagnoses Date Provider Providers Copied on Encounter Office/outpat ient Visit, Est [facility], [address], [place], [place], [id number], [place] tel:[phone] [facility] No Information 0 Jody Suarez [address] , [address], [place], [place], [facility], . tel:[phone] Office/outpat ient Visit, [facility], [address] [place] [address] [address], [place], [place], [id number], tel:[phone] [facility] No Information 0 Jody Paulino. [address] , [address], [place], [place], [facility], [place]. tel:[phone] Referring Provider: Lora Andrew, [address], [place], [place], [facility]. tel:[phone] Office/outpat ient Visit, [facility], [address] [place] [address] [address], [place], [place], [id number], tel:[phone] [facility] No Information 0 Jody Paulino. [address] , [address], [place], [place], [facility], [place]. tel:[phone] Referring Provider: Lora Andrew, [address] [facility], [place], [place], [facility]. tel:[phone] [facility], [address] [place] [address] [address], [place], [place], [id number], [place] tel:[phone] [facility] No Information 0 Cunningham OD Isaac. [address] , [address], [place], [place], [facility], [place]. tel:[phone] [facility], [address] [place] [address] [address], [place], [place], [id number], [place] tel:[phone] [facility] No Information 0 Jody Paulino. [address], [address], [place], [place], [facility], [place]. tel:[phone] Referring Provider: Lora Andrew, [address], [place], [place], [facility]. tel:[phone] [facility], [address] [place] [address] [address], [place], [place], [id number], tel:[phone] [facility] No Information [phone] 0 Jody Paulino. [address] [facility] , [address], [place], [place], [facility], . tel:[phone] Referring Provider: Lora Andrew, [address] [facility] [address], [place], [place], [facility]. tel:[phone] [facility], [address] [place] [address] [address], [place], [place], [id number], tel:[phone] [facility] No Information 2-201 0 Jody Paulino. [facility] , [address], [place], [place], [facility], . tel:[phone] [facility], [address] [place] [address] [address], [place], [place], [id number], tel:[phone] [facility] No Information Sep- 9-200 8 Cunningham OD Isaac. [facility] [address], [address], [place], [place], [facility], . tel:[phone] [facility], [address] [place] [address] [address], [place], [place], [id number], tel:[phone] [facility] No Information Sep- 1-200 8 Cunningham OD Isaac. [address] [facility] , [address], [place], [place], [facility], . tel:[phone] Family History Family Member Type Diagnosis Age At Onset No Information Payers Payer name Insurance type Covered republican ID Authoriza tion(s) Medicare [employer] [id number] Medicaid [employer] [id number] Social History Type Description Quantity Date Captured Comments Sex Male Smoking Status No Information Chief Complaint And Reason For Visit No Information Reason For Referral Reason For Referral No Information History Of Present Illness Encounter Date Complaint History Of Prese nt Illness No Information Functional Status Date Functional Assessmen t No Information Instructions Date Instruction Additional Infor mation No Information Assessments Type Assessment Date No Information Patient Care Teams Name Effective Dates (start - stop) Status Members No Information
--- OUTSIDE RECORDS SUMMARY | 2025-03-14 14:10 | XMS_ITS | Encounter Summary ---
Author Organization [facility] Address 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
--- OUTSIDE RECORDS SUMMARY | 2025-03-14 14:10 | XMS_ITS | Clinical Summary ---
Author Organization [facility] Address [address] [place] [address] Phone Care Team Providers Care Healthcare Administration Internship Name Role Phone Kennedy Cerda Primary Care Provider Allergies No known active allergies Medications clonazePAM (KLONOPIN) 0.5 mg Tablet take 3 Tablet (1.5MG) by oral route every bedtime. 2 Active QUEtiapine (SEROQUEL) 25 mg tablet take 2 Tablet (50MG) by oral route every bedtime. 2 Active travoprost (TRAVATAN Z) 0.004 % solution instill 1 drop by ophthalmic route every day into affected eye(s) in the evening. Active gabapentin (NEURONTIN) 100 mg capsule Per neurologist . 6 Active clotrimazole-be tamethasone (LOTRISONE) 1-0.05 % Cream Apply to affected area . 7 Active fluticasone propionate (FLONASE) 50 mcg/spray [place], Suspension nasal inhaler 9 Active lisinopriL (PRINIVIL) 40 mg tablet TAKE 1 TABLET (40 MG) BY MOUTH DAILY. 90 Tablet 3 1 Active Active Problems Problem Noted Date Diagnosed Date Elevated glucose 08/04/2019 Hyperlipidemia 11/28/2016 History of melanoma 11/01/2015 Paresthesia 11/01/2015 Overweight 11/01/2015 Melanoma of skin, site unspecified 04/15/2014 Esophageal reflux 03/23/2012 Obesity, unspecified 03/23/2012 Calculus of kidney 07/30/2011 Depressive disorder, not elsewhere classified Essential hypertension, benign 03/12/2011 Resolved Problems Problem Noted Date Diagnosed Date Resolved Date Other and unspecified hyperlipidemia 03/12/2011 11/28/2016 Immunizations Immunization Administration Dates Next Due INFLUENZA VACCINE QUADRIVALENT 3 YR UP PF IM 06/2019 Influenza Vaccine Quad Split 3+ Yrs Im 7 Influenza Vaccine Split 3+ Yrs IM 07/08/2018 Family History Medical History Relation Name Comments Healthy Father Healthy Mother Relation Name Status Comments Father Alive Mother Alive Social History Tobacco Use Types Packs/Day Years Used Date Smoking Tobacco: Former Cigarettes Q uit: 09/10/1990 Smokeless Tobacco: Never Alcohol Use Standard Drinks/Week Comments Not Asked 0 (1 standard drink = 0.6 oz pur e alcohol) Sex and Gender Information Value Date Recorded Sex Assigned at Not on file Legal Sex Male 4:55 AM ADMINISTRATIVE ASSISTANT OFFICE MANAGER Gender Identity Not on file Sexual Orientation Not on file Last Filed Vital Signs Vital Sign Reading Time Taken Comments Blood Pressure 136/84 09/06/2020 11:13 AM ADMINISTRATIVE ASSISTANT OFFICE MANAGER Pulse 72 09/06/2020 11:13 AM ADMINISTRATIVE ASSISTANT OFFICE MANAGER Temperature 36.4 C (97.5 F) 09/06/2020 11:13 AM ADMINISTRATIVE ASSISTANT OFFICE MANAGER Respiratory Rate 16 09/06/2020 11:13 AM ADMINISTRATIVE ASSISTANT OFFICE MANAGER Oxygen Saturation 97% 10/08/2017 2:31 PM ADMINISTRATIVE ASSISTANT OFFICE MANAGER Inhaled Oxygen Concentration - - Weight 154.2 kg (340 lb) 09/06/2020 11:13 AM ADMINISTRATIVE ASSISTANT OFFICE MANAGER Height 182.9 cm (6') 09/06/2020 11:13 AM ADMINISTRATIVE ASSISTANT OFFICE MANAGER Body Mass Index 46.11 09/06/2020 11:13 AM ADMINISTRATIVE ASSISTANT OFFICE MANAGER Plan of Treatment Health Maintenance Due Date Last Done Comments DTAP/TDAP/TD VACCINES (1 - Tdap) 1988 HEPATITIS B VACCINES (1 of 3 - 19+ 3-dose series) 1988 COLORECTAL SCREENING 2014 Colorectal Cancer Screening 2014 FIT-DNA Q 3 years 2014 FIT/FOBT Q 1 year 2014 Flex Sig/CT Colonography Q 5 years 2014 ZOSTER VACCINE (1 of 2) 2019 INFLUENZA VACCINE (#1) 2025 9, 07/08/2018, 06/23/2017 Insurance MEDICARE PART A AND B Care Teams Healthcare Administration Internship Relationship Specialty Start Date End Date Kennedy Cerda DO [address] [facility] [address] [place] [id number] PCP - General Internal Medicine 08/01/21
--- OUTSIDE RECORDS SUMMARY | 2025-03-14 14:11 | XMS_ITS | Encounter Summary ---
Author Organization [facility] Address 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
--- OUTSIDE RECORDS SUMMARY | 2025-03-14 14:11 | XMS_ITS | Encounter Summary ---
Author Organization [facility] Address 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
--- OUTSIDE RECORDS SUMMARY | 2025-03-14 14:11 | XMS_ITS | Encounter Summary ---
Author Organization [facility] Address [address] [place] [address] Care Team Providers Care Account Administrator Name Role Phone Kennedy Cerda DO Primary Care Provider Encounter Details Date Type Department Care Team (Latest Contact Info) Description 10/12/1998 Outpatient Historical HIS CARDIOPULMONARY Chana Cordero MD [address] [facility] [address] [place] [address] Reflux esophagitis (Primary Dx) Social History Tobacco Use Types Packs/Day Years Used Date Smoking Tobacco: Never Assessed Sex and Gender Information Value Date Recorded Sex Assigned at Not on file Legal Sex Male 4:55 AM PHYSICS TECHNICIAN Gender Identity Not on file Sexual Orientation Not on file documented as of this encounter Plan of Treatment Not on file documented as of this encounter Visit Diagnoses Diagnosis Reflux esophagitis- Primary documented in this encounter Care Teams Account Administrator Relationship Specialty Start Date End Date Kennedy Cerda DO [address] [facility] [address] [place] [address] PCP - General Internal Medicine 08/01/21 documented as of this encounter
--- OUTSIDE RECORDS SUMMARY | 2025-03-14 14:11 | XMS_ITS | Encounter Summary ---
Author Organization [facility] Address 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
--- OUTSIDE RECORDS SUMMARY | 2025-03-14 14:11 | XMS_ITS | Encounter Summary ---
Author Organization [facility] Address [address] [place] [address] Care Team Providers Care Director Of Institutional Research Name Role Phone Kennedy Cerda DO Primary Care Provider [phone] Encounter Details Date Type Department Care Team (Latest Contact Info) Description 02/09/2002 Outpatient Historical HIS [facility] Fontaine, Sarthak Conner MD NO ADDRESS ON FILE DIZZINESS AND GIDDINESS (Primary Dx) Social History Tobacco Use Types Packs/Day Years Used Date Smoking Tobacco: Never Assessed Sex and Gender Information Value Date Recorded Sex Assigned at Not on file Legal Sex Male 4:55 AM RAW MATERIAL PLANNER Gender Identity Not on file Sexual Orientation Not on file documented as of this encounter Plan of Treatment Not on file documented as of this encounter Visit Diagnoses Diagnosis Dizziness and giddiness- Primary documented in this encounter Care Teams Director Of Institutional Research Relationship Specialty Start Date End Date Kennedy Cerda DO [address] [facility] [address] [place] [address] PCP - General Internal Medicine 08/01/21 documented as of this encounter
--- OUTSIDE RECORDS SUMMARY | 2025-03-14 14:11 | XMS_ITS | Encounter Summary ---
Author Organization [facility] Address [address] [place] [address] Care Team Providers Care Concrete Paving Supervisor Name Role Phone Kennedy Cerda DO Primary Care Provider [phone] Encounter Details Date Type Department Care Team (Late st Contact Info) Description 07/02/2002 Outpatient Historical HIS IMG-HOSP Chana Cordero MD [address] [facility] [address] [place] [address] ABDOMINAL PAIN EPIGASTRIC (Primary Dx) Social History Tobacco Use Types Packs/Day Years Used Date Smoking Tobacco: Never Assessed Sex and Gender Information Value Date Recorded Sex Assigned at Not on file Legal Sex Male 4:55 AM MICA INSPECTOR Gender Identity Not on file Sexual Orientation Not on file documented as of this encounter Plan of Treatment Not on file documented as of this encounter Visit Diagnoses Diagnosis Abdominal pain, epigastric- Primary documented in this encounter Care Teams Concrete Paving Supervisor Relationship Specialty Start Date End Date Kennedy Cerda DO [address] [facility] [address] [place] [address] PCP - General Internal Medicine 08/01/21 documented as of this encounter
--- OUTSIDE RECORDS SUMMARY | 2025-03-14 14:11 | XMS_ITS | Encounter Summary ---
Author Organization [facility] Address [address] [place] [address] Care Team Providers Care Put In Beat Adjuster Name Role Phone Kennedy Cerda DO Primary Care Provider [phone] Encounter Details Date Type Department Care Team (Latest Contact Info) Description 12/02/2005 Outpatient Historical HIS [facility] Fontaine, Sarthak Conner MD NO ADDRESS ON FILE Elevated Blood Pressure Reading without Diagnosis of Hypertension (Primary Dx) Social History Tobacco Use Types Packs/Day Years Used Date Smoking Tobacco: Never Assessed Sex and Gender Information Value Date Recorded Sex Assigned at Not on file Legal Sex Male 4:55 AM HOPPER FILLER Gender Identity Not on file Sexual Orientation Not on file documented as of this encounter Plan of Treatment Not on file documented as of this encounter Procedures Procedure Name Priority Date/Time Associated Diagnosis Comments COMPREHENSIVE METABOLIC PANEL Routine 12/02/2005 11:12 AM CDT documented in this encounter Results * (ABNORMAL) COMPREHENSIVE METABOLIC PANEL (12/02/2005 11:12 AM CDT) GLUCOSE 102 65 - 109 mg/dL INTERFACE SYSTEM CREATININE 1.1 0.5 - 1.3 mg/dL INTERFACE SYSTEM CALCIUM 9.2 8.6 - 10.2 mg/dL INTERFACE SYSTEM AST 27 12 - 38 U/L INTERFACE SYSTEM ALKALINE PHOSPHATASE 84 40 - 129 U/L INTERFACE SYSTEM ALT 52(H) 0 - 41 U/L INTERFACE SYSTEM BILIRUBIN TOTAL 0.4 0.2 - 1.0 mg/dL INTERFACE SYSTEM ALBUMIN 4.4 3.4 - 4.8 g/dL INTERFACE SYSTEM TOTAL PROTEIN 7.7 6.3 - 8.6 g/dL INTERFACE SYSTEM BUN 13 6 - 20 mg/dL INTERFACE SYSTEM SODIUM 141 135 - 145 mmol/L INTERFACE SYSTEM POTASSIUM 3.5 3.5 - 4.9 mmol/L INTERFACE SYSTEM CHLORIDE 105 96 - 108 mmol/L INTERFACE SYSTEM CO2 31(H) 22 - 30 mmol/L INTERFACE SYSTEM 12/02/2005 11:1 2 AM CDT us Sarthak Fontaine MD CHEMISTRY ORDERABLES Fi nal Result INTERFACE SYSTEM Refer to clinic/hospital department documented in this encounter Visit Diagnoses Diagnosis Elevated blood pressure reading without diagnosis of hypertension- Primary documented in this encounter Care Teams Put In Beat Adjuster Relationship Specialty Start Date End Date Kennedy Cerda DO [address] [facility] [address] [place] [address] PCP - General Internal Medicine 08/01/21 documented as of this encounter
--- OUTSIDE RECORDS SUMMARY | 2025-03-14 14:11 | XMS_ITS | Encounter Summary ---
Author Organization [facility] Address [address] [place] [address] Care Team Providers Care Skein Yard Drier Name Role Phone Kennedy Cerda DO Primary Care Provider [phone] Encounter Details Date Type Department Care Team (Latest Contact Info) Description 11/19/2001 Outpatient Historical HIS [facility] Fontaine, Sarthak Conner MD NO ADDRESS ON FILE ESOPHAGEAL REFLUX (Primary Dx) Social History Tobacco Use Types Packs/Day Years Used Date Smoking Tobacco: Never Assessed Sex and Gender Information Value Date Recorded Sex Assigned at Not on file Legal Sex Male 4:55 AM VALUE ANALYST Gender Identity Not on file Sexual Orientation Not on file documented as of this encounter Plan of Treatment Not on file documented as of this encounter Visit Diagnoses Diagnosis Esophageal reflux- Primary documented in this encounter Care Teams Skein Yard Drier Relationship Specialty Start Date End Date Kennedy Cerda DO [address] [facility] [address] [place] [address] PCP - General Internal Medicine 08/01/21 documented as of this encounter
--- OUTSIDE RECORDS SUMMARY | 2025-03-14 14:11 | XMS_ITS | Encounter Summary ---
Author Organization [employer] Address 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
--- OUTSIDE RECORDS SUMMARY | 2025-03-14 14:11 | XMS_ITS | Encounter Summary ---
Author Organization [employer] Address [address] [place] [address] Care Team Providers Care Mechanical Fitter Name Role Phone Kennedy Cerda DO Primary Care Provider Encounter Details Date Type Department Care Team (Latest Contact Info) Description 06/19/2000 Outpatient Historical HIS [facility] Sarthak Fontaine MD NO ADDRESS ON FILE Type II or unspecified type diabetes mellitus without mention of complication, not stated as uncontrolled (Primary Dx) Social History Tobacco Use Types Packs/Day Years Used Date Smoking Tobacco: Never Assessed Sex and Gender Information Value Date Recorded Sex Assigned at Not on file Legal Sex Male 4:55 AM LANGUAGE PATHOLOGIST Gender Identity Not on file Sexual Orientation Not on file documented as of this encounter Plan of Treatment Not on file documented as of this encounter Visit Diagnoses Diagnosis Type II or unspecified type diabetes mellitus without mention of complication, not stated as uncontrolled- Primary documented in this encounter Care Teams Mechanical Fitter Relationship Specialty Start Date End Date Kennedy Cerda DO [address] [facility] [address] [place] [address] PCP - General Internal Medicine 08/01/21 documented as of this encounter
--- OUTSIDE RECORDS SUMMARY | 2025-03-14 14:11 | XMS_ITS | Encounter Summary ---
Author Organization [facility] Address [address] [place] [address] Care Team Providers Care Office Support Associate Name Role Phone Kennedy Cerda DO Primary Care Provider [phone] Encounter Details Date Type Department Care Team (Late st Contact Info) Description 08/11/2003 Outpatient Historical [facility] NO ADDRESS ON FILE Social History Tobacco Use Types Packs/Day Years Used Date Smoking Tobacco: Never Assessed Sex and Gender Information Value Date Recorded Sex Assigned at Not on file Legal Sex Male 4:55 AM MATERIALS ASSISTANT Gender Identity Not on file Sexual Orientation Not on file documented as of this encounter Plan of Treatment Not on file documented as of this encounter Visit Diagnoses Not on filedocumented in this encounter Care Teams Office Support Associate Relationship Specialty Start Date End Date Kennedy Cerda DO [address] [facility] [address] [place] [address] PCP - General Internal Medicine 08/01/21 documented as of this encounter
--- OUTSIDE RECORDS SUMMARY | 2025-03-14 14:11 | XMS_ITS | Encounter Summary ---
Author Organization [employer] [facility] Address 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
--- OUTSIDE RECORDS SUMMARY | 2025-03-14 14:11 | XMS_ITS | Encounter Summary ---
Author Organization [facility] Address 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
--- OUTSIDE RECORDS SUMMARY | 2025-03-14 14:11 | XMS_ITS | Encounter Summary ---
Author Organization [facility] Address 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
--- OUTSIDE RECORDS SUMMARY | 2025-03-14 14:11 | XMS_ITS | Encounter Summary ---
Author Organization [employer] Address 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
[2025-03-14 15:37] LABS: Alanine Aminotransferase 36 U/L (6-50); Albumin Level 4.5 g/dL (3.5-5.1); Alkaline Phosphatase 94 U/L (38-126); Anion Gap 6 mmol/L (4-12); Aspartate Amino Transferase 32 U/L (17-59); Bilirubin,Total 0.6 mg/dL (0.2-1.3); Blood Urea Nitrogen 13 mg/dL (9-20); Calcium 9.5 mg/dL (8.4-10.2); Carbon Dioxide 27 mmol/L (22-30); Chloride 104 mmol/L (98-107); Estimated Glomerular Filt Rate > 60; Glucose 135 mg/dL (65-110); Potassium 4.2 mmol/L (3.4-5.0); Sodium 137 mmol/L (137-145); Total Protein 7.9 g/dL (6.3-8.2)
[2025-03-14 15:46] LABS: Hemoglobin A1C 6.3 % (<5.7)
[2025-03-14 16:52] LABS: MALB Creatinine Ratio 4.7 mg/g (0-30)
== END 2025-03-14 14:08 | disposition home or self-care (01) ==
PROVIDERS: PCP Nurse Practitioner Family; Visit Provider Nurse Practitioner Family
DX: E11.9 Type 2 diabetes mellitus without complications (principal); I10 Essential (primary) hypertension; E66.01 Morbid (severe) obesity due to excess calories
CPT/HCPCS: 36415; 80053; 82043; 83036